=== PATIENT | female | born 1985 | race Caucasian/White ===

== ENCOUNTER 2017-05-18 18:34 | Emergency (ER) | payer OTHER ==
[~2017-05-18] VITALS: Ht 162.6 cm; Wt 122.9 kg
[2017-05-18 18:35] VITALS: BP 127/82
[2017-05-18] MEDS ORDERED: ONDA4ODT1 PO (18:42)
[2017-05-18] MEDS ORDERED: GABA300C PO (18:42)
[2017-05-18] MEDS ORDERED: LAM200 PO (18:42)
[2017-05-18] MEDS ORDERED: FLUO10CA21 PO (18:42)
--- NOTE | 2017-05-18 18:57 | NUR ---
PATIENT IS A DIRECT ADMIT AT ANOTHER HOSPITAL PATIENT IS LWBS
--- NOTE | 2017-05-18 19:09 | NUR ---
PATIENT IS A [place] PATIENT SEEN AT A [facility] AND IS A DIRECT ADMIT TO [facility] [place] SHE WAS NOT ON A 5150 HOLD VOLUNTARY ADMIT MABRY PATIENT. THEY LEFT AFTER DISCOVERING THEIR MISTAKE.
== END 2017-05-18 19:09 | disposition left against medical advice (07) ==
LOC: MED 18:34
DX: R45.851 Suicidal ideations (principal); Z53.21 Procedure and treatment not carried out due to patient leaving prior to being seen by health care provider